=== PATIENT | female | born 1985 | race Caucasian/White ===

== ENCOUNTER 2018-02-02 19:52 | Emergency (ER) | payer OTHER ==
[~2018-02-02] VITALS: Ht 167.6 cm; Wt 81.6 kg
[2018-02-02] MEDS ORDERED: IV NORMAL SALINE 1000 ML BAG IV ONE ×2 (20:15→22:00)
[2018-02-02] MEDS ORDERED: PANTOPRAZOLE SODIUM 40 MG VIAL IV ONE (20:15)
[2018-02-02] MEDS ORDERED: ONDANSETRON 4 MG/2 ML VIAL IV ONE (20:15)
[2018-02-02] MEDS ORDERED: LORAZEPAM 2 MG/1 ML VIAL IV ONE ×2 (20:30→22:00)
[2018-02-02] MEDS ORDERED: ONDANSETRON 4 MG/2 ML VIAL ONE (20:37)
[2018-02-02] MEDS ORDERED: PANTOPRAZOLE SODIUM 40 MG VIAL ONE (20:37)
[2018-02-02 20:39] LABS: BASOPHILS % (AUTO) 0.2 % (0.0-2.0); EOSINOPHILS % (AUTO) 0.2 % (0.0-7.0); HEMATOCRIT 36.6 % (31.2-41.9); HEMOGLOBIN 12.4 g/dL (10.9-14.3); LYMPHOCYTES # (AUTO) 0.9 K/uL (20.0-40.0); LYMPHOCYTES % (AUTO) 13.7 % (20.5-51.5); MEAN CORPUSCULAR HEMOGLOBIN 30.6 uug (24.7-32.8); MEAN CORPUSCULAR HGB CONC 34 g/dL (32.3-35.6); MEAN CORPUSCULAR VOLUME 90.1 fL (75.5-95.3); MONOCYTES # (AUTO) 0.2 K/uL (2.0-10.0); MONOCYTES % (AUTO) 3.6 % (0.0-11.0); NEUTROPHILS # (AUTO) 5.7 K/uL (1.8-8.9); NEUTROPHILS % (AUTO) 82.3 % (38.5-71.5); PLATELET COUNT (AUTO) 230 K/uL (179-408); RED BLOOD CELL COUNT(AUTO) 4.07 MIL/uL (3.63-4.92); WHITE BLOOD COUNT (AUTO) 6.9 K/uL (3.8-11.8)
[2018-02-02] MEDS ORDERED: LORAZEPAM 2 MG/1 ML VIAL ONE ×2 (20:39→22:03)
[2018-02-02 20:44] LABS: CREATININE 0.8 mg/dL (0.6-1.3); POTASSIUM 3.7 mmol/L (3.5-5.1)
[2018-02-02 20:50] LABS: BILIRUBIN,DIRECT 0.1 mg/dL (0.0-0.2); BILIRUBIN,TOTAL 0.2 mg/dL (0.2-1.0); TOTAL PROTEIN, SERUM 7.5 g/dL (6.4-8.2)
[2018-02-02 21:36] LABS: *AMPHETAMINE, URINE NEGATIVE (NEGATIVE); *BARBITURATE, URINE NEGATIVE (NEGATIVE); *CANNABINOID, URINE POSITIVE (NEGATIVE); *COCCAINE, URINE NEGATIVE (NEGATIVE); *OPIATE, URINE NEGATIVE (NEGATIVE); *PHENCYCLIDINE SCREEN,URINE NEGATIVE (NEGATIVE)
--- NOTE | 2018-02-02 21:50 | NUR ---
Patient requesting for 2nd dose of Ativan for anxiety not relieved by 1st dose
--- NOTE | 2018-02-02 22:10 | NUR ---
Patient states hurt back about 1month ago after moving furniture and in the last 4 days re-agrrevated back pain. requesting for pain med
[2018-02-02] MEDS ORDERED: HYDROCODONE/APAP 5-325MG TABLET PO ONE (22:15)
[2018-02-02] MEDS ORDERED: HYDROCODONE/APAP 5-325MG TABLET ONE (22:19)
[2018-02-02 22:44] LABS: BASOPHILS % (AUTO) 0.2 % (0.0-2.0); HEMATOCRIT 32.9 % (31.2-41.9); HEMOGLOBIN 11.5 g/dL (10.9-14.3); LYMPHOCYTES # (AUTO) 0.7 K/uL (20.0-40.0); LYMPHOCYTES % (AUTO) 9.3 % (20.5-51.5); MEAN CORPUSCULAR HEMOGLOBIN 31.9 uug (24.7-32.8); MEAN CORPUSCULAR HGB CONC 35 g/dL (32.3-35.6); MEAN CORPUSCULAR VOLUME 91.2 fL (75.5-95.3); MONOCYTES # (AUTO) 0.1 K/uL (2.0-10.0); MONOCYTES % (AUTO) 1.9 % (0.0-11.0); NEUTROPHILS # (AUTO) 6.6 K/uL (1.8-8.9); NEUTROPHILS % (AUTO) 88.6 % (38.5-71.5); PLATELET COUNT (AUTO) 200 K/uL (179-408); WHITE BLOOD COUNT (AUTO) 7.5 K/uL (3.8-11.8)
--- NOTE | 2018-02-02 23:48 | NUR ---
IV removed. Catheter intact and site benign. Pressure and 4x4 gauze applied to site. No bleeding noted.
--- NOTE | 2018-02-03 00:05 | NUR ---
Patient discharged to home in stable conditon. Written and verbal after care instructions given. Patient verbalizes understanding of instructions. Patient taking Uber home
[2018-02-03 00:06] VITALS: BP 128/77
== END 2018-02-03 00:08 | disposition home or self-care (01) ==
LOC: ER 19:54
DX: K22.6 Gastro-esophageal laceration-hemorrhage syndrome (principal); K29.20 Alcoholic gastritis without bleeding; F10.129 Alcohol abuse with intoxication, unspecified; G89.29 Other chronic pain; M54.5 Low back pain; R00.0 Tachycardia, unspecified; Z88.8 Allergy status to other drugs, medicaments and biological substances
CPT/HCPCS: 36415; 71045; 80307; 83690; 84443; 84703; 85025; 86850; 86900; 86901; 93005; A4663; C9113; G0480; J2060; J2405; J7030

== ENCOUNTER 2018-02-26 22:14 | Emergency (ER) | payer OTHER ==
[~2018-02-26] VITALS: Ht 175.3 cm; Wt 79.4 kg
[2018-02-26] MEDS ORDERED: LORAZEPAM 2 MG/1 ML VIAL IV ONE (22:29)
[2018-02-26] MEDS ORDERED: IV NS 1000 ML 1,000 ML IV ONE (22:30)
[2018-02-26] MEDS ORDERED: LORAZEPAM 2 MG/1 ML VIAL ONE (22:38)
[2018-02-26 22:53] LABS: BASOPHILS # (AUTO) 0.1 K/uL (0.0-8.0); BASOPHILS % (AUTO) 0.6 % (0.0-2.0); EOSINOPHILS # (AUTO) 0.2 K/uL (0.0-0.7); EOSINOPHILS % (AUTO) 1.9 % (0.0-7.0); HEMATOCRIT 35.2 % (31.2-41.9); LYMPHOCYTES # (AUTO) 2.9 K/uL (20.0-40.0); LYMPHOCYTES % (AUTO) 36.2 % (20.5-51.5); MEAN CORPUSCULAR HEMOGLOBIN 30.6 uug (24.7-32.8); MEAN CORPUSCULAR HGB CONC 34 g/dL (32.3-35.6); MEAN CORPUSCULAR VOLUME 89.8 fL (75.5-95.3); MONOCYTES # (AUTO) 0.6 K/uL (2.0-10.0); MONOCYTES % (AUTO) 6.8 % (0.0-11.0); NEUTROPHILS # (AUTO) 4.4 K/uL (1.8-8.9); NEUTROPHILS % (AUTO) 54.5 % (38.5-71.5); PLATELET COUNT (AUTO) 303 K/uL (179-408); RED BLOOD CELL COUNT(AUTO) 3.92 MIL/uL (3.63-4.92); WHITE BLOOD COUNT (AUTO) 8.1 K/uL (3.8-11.8)
[2018-02-26 23:07] LABS: CARBON DIOXIDE 20 mmol/L (21-32); CHLORIDE 100 mmol/L (98-107); CREATININE 0.9 mg/dL (0.6-1.3); GLUCOSE 103 mg/dL (74-106); POTASSIUM 2.9 mmol/L (3.5-5.1); UREA NITROGEN, BLOOD 7 mg/dL (7-18)
[2018-02-26 23:12] LABS: ETHANOL < 3 MG/DL (0-0)
[2018-02-26 23:14] LABS: ALANINE AMINOTRANSFERASE 17 U/L (14-59); ALKALINE PHOSPHATASE 83 U/L (50-136); ASPARTATE AMINOTRANSFERASE 14 U/L (15-37); BILIRUBIN,TOTAL 0.4 mg/dL (0.2-1.0); CREATINE KINASE, TOTAL 73 U/L (26-192); TOTAL PROTEIN, SERUM 7.4 g/dL (6.4-8.2)
[2018-02-26 23:22] LABS: *BILIRUBIN,URIN NEGATIVE (NEGATIVE); *BLOOD, URINE NEGATIVE (NEGATIVE); *CLARITY,URINE CLEAR (CLEAR); *COLOR,URINE LIGHT YELLOW (YELLOW); *KETONES,URINE NEGATIVE (NEGATIVE); *PROTEIN,URINE NEGATIVE (NEGATIVE); *UROBILINOGEN,URINE 0.2 E.U./dl (NORMAL); LEUKOCYTE ESTERASE ,URINE NEGATIVE (NEGATIVE); NITRITE, URINE NEGATIVE (NEGATIVE); UGLUCOSE NEGATIVE (NEGATIVE)
[2018-02-26 23:29] LABS: RBC,URINE NONE SEEN /HPF (0-3)
[2018-02-26 23:30] LABS: BACTERIA,URINE NONE SEEN /HPF (NONE SEEN); MUCUS,URINE FEW /LPF (0-FEW); SQUAMOUS EPITHELIAL CELL,UR FEW /HPF (NONE SEEN); WBC,URINE 0-3 /HPF (0-3)
[2018-02-26 23:33] LABS: *AMPHETAMINE, URINE NEGATIVE (NEGATIVE); *BARBITURATE, URINE NEGATIVE (NEGATIVE); *CANNABINOID, URINE NEGATIVE (NEGATIVE); *COCCAINE, URINE NEGATIVE (NEGATIVE); *OPIATE, URINE POSITIVE (NEGATIVE); *PHENCYCLIDINE SCREEN,URINE NEGATIVE (NEGATIVE)
[2018-02-26] MEDS ORDERED: POTASSIUM CHLORIDE 20 MEQ TAB.PRT.SR PO ONE (23:55)
[2018-02-26] MEDS ORDERED: POTASSIUM CHLORIDE 20 MEQ TAB.PRT.SR ONE (23:59)
[2018-02-27] MEDS ORDERED: IV NS 1000 ML 1,000 ML IV ONE
[2018-02-27] MEDS ORDERED: POTASSIUM CHLORIDE 20 MEQ TAB.PRT.SR PO ONE (01:14)
[2018-02-27] MEDS ORDERED: POTASSIUM CHLORIDE 20 MEQ TAB.PRT.SR ONE (01:24)
--- NOTE | 2018-02-27 01:53 | NUR ---
Patient discharged to home in stable conditon. Written and verbal after care instructions given. Patient verbalizes understanding of instructions.
== END 2018-02-27 01:54 | disposition home or self-care (01) ==
LOC: ER 22:15
DX: F11.23 Opioid dependence with withdrawal (principal); E87.6 Hypokalemia; E86.9 Volume depletion, unspecified; G89.29 Other chronic pain; M54.9 Dorsalgia, unspecified; Z88.8 Allergy status to other drugs, medicaments and biological substances
CPT/HCPCS: 36415; 70030-TC; 71045; 80307; 85025; 93005; A4663; G0480; J2060; J7030

== ENCOUNTER 2018-03-03 00:04 | Emergency (ER) | payer OTHER ==
[~2018-03-03] VITALS: Ht 167.6 cm; Wt 81.6 kg
[2018-03-03] MEDS ORDERED: DIAZEPAM 2 MG TABLET PO ONE (00:30)
[2018-03-03] MEDS ORDERED: DIAZEPAM 5 MG TABLET ONE (00:36)
[2018-03-03] MEDS ORDERED: ASPIRIN 81 MG TAB.CHEW PO ONE (00:45)
[2018-03-03] MEDS ORDERED: ASPIRIN 81 MG TAB.CHEW ONE (00:46)
--- NOTE | 2018-03-03 01:48 | NUR ---
mse completed, meds administered, pt d/c'd home, aci/rx x1 given. pt got dresed/ambuklated w/o diff/took all belongings.
[2018-03-03 01:49] VITALS: BP 120/68
== END 2018-03-03 01:50 | disposition home or self-care (01) ==
LOC: ER 00:06
DX: F10.239 Alcohol dependence with withdrawal, unspecified (principal); F41.9 Anxiety disorder, unspecified; G89.29 Other chronic pain; M54.5 Low back pain; Z88.8 Allergy status to other drugs, medicaments and biological substances
CPT/HCPCS: 36415; 70030-TC; 71045; 93005; A4663

== ENCOUNTER 2018-04-03 03:18 | Emergency (ER) | payer OTHER ==
[~2018-04-03] VITALS: Ht 167.6 cm; Wt 79.4 kg
--- NOTE | 2018-04-03 03:31 | NUR ---
ANTON GAMBOA AT BEDSIDE FOR MSE.
[2018-04-03] MEDS: LORAZEPAM 0.5 MG TABLET PO ONE (04:04)
[2018-04-03] MEDS ORDERED: LORAZEPAM 1 MG TABLET ONE (04:05)
--- NOTE | 2018-04-03 04:05 | NUR ---
PT APPEARS ANXIOUS, CRYING. MD MADE AWARE. ATIVAN GIVEN. WILL CTM.
--- NOTE | 2018-04-03 04:45 | NUR ---
PT STILL APPEARS ANXIOUS. PT STATES THE ATIVAN DID NOT HELP HER. PT IS UPSET AND IS REQUESTING IV PLACEMENT, IV FLUIDS, AND ATIVAN IVP. SA02 100% RA.
[2018-04-03] MEDS ORDERED: CHLORDIAZEPOXIDE HCL 25 MG CAPSULE ONE (05:02)
[2018-04-03] MEDS: CHLORDIAZEPOXIDE HCL 25 MG CAPSULE PO ONE (05:04)
--- NOTE | 2018-04-03 05:43 | NUR ---
Patient discharged to home in stable conditon. Written and verbal after care instructions given. Patient verbalizes understanding of instructions. Patient ambulated out of ER in steady gait. All belongings with pt. VSS. No acute distress noted. Pt understands not to drive home.
[2018-04-03 05:46] VITALS: BP 147/91
== END 2018-04-03 05:46 | disposition home or self-care (01) ==
LOC: ER 03:22
DX: F10.239 Alcohol dependence with withdrawal, unspecified (principal); G89.29 Other chronic pain; Z88.8 Allergy status to other drugs, medicaments and biological substances
CPT/HCPCS: 93005; 99283; A4663

== ENCOUNTER 2018-07-05 17:13 | Emergency (ER) | payer OTHER ==
[~2018-07-05] VITALS: Ht 167.6 cm; Wt 72.6 kg
--- NOTE | 2018-07-05 17:38 | NUR ---
PATEINT WAS SEEN BY . HER RECORD SHOWS THAT SHE IS ALLERGIC TO TORADOL BUT PATIENT CLEARLY STATES "I AM NOT ALLERGIC TO TORADOL AT ALL." I REMOVED IT AN ALLERGY ON HER RECORD AND NOTIFIED DR LOZANO.
[2018-07-05] MEDS ORDERED: LORAZEPAM 1 MG TABLET ONE (17:42)
[2018-07-05] MEDS ORDERED: LORAZEPAM 0.5 MG TABLET PO ONE (17:45)
[2018-07-05] MEDS ORDERED: KETOROLAC TROMETHAMINE 30 MG INJ IM ONE (17:45)
[2018-07-05] MEDS ORDERED: KETOROLAC TROMETHAMINE 30 MG INJ ONE (17:50)
--- NOTE | 2018-07-05 17:50 | NUR ---
ATIVAN AND MEDICATION PRECAUTIONS EXPLAINED TO PATIENT. DC, RX AND F/U INSTRUCTIONS GIVEN AND EXPLAINED TO PATIENT WHO STATES SHE UNDERSTANDS ALL INSTRUCTIONS. PATIENT STATES SHE WILL NOT DRIVE IF FELLING UNABLE DUE TO MEDICATION..
== END 2018-07-05 17:53 | disposition home or self-care (01) ==
LOC: ER 17:14
DX: F10.239 Alcohol dependence with withdrawal, unspecified (principal); M54.9 Dorsalgia, unspecified; G89.29 Other chronic pain
CPT/HCPCS: A4663; J1885

== ENCOUNTER 2019-03-03 06:42 | Emergency (ER) | payer MEDICAID, OTHER ==
[~2019-03-03] VITALS: Ht 167.6 cm; Wt 72.6 kg
--- NOTE | 2019-03-03 06:54 | NUR ---
ERMD at bedside for MSE
--- NOTE | 2019-03-03 06:54 | NUR ---
Patient ambulated with stable gait. A/Ox4. Speech is clear, speaks in complete sentences. No neuro deficits. Patient came in for c/o alcohol withdrawal. Last drink about 12hours ago. Denies any hallucinations. Patient experiencing tremors, and shakiness. Respiratory even and unlabored. No GI/ distress.
[2019-03-03] MEDS ORDERED: LORAZEPAM 2 MG/1 ML VIAL ONE ×2 (06:59→07:31)
[2019-03-03] MEDS ORDERED: LORAZEPAM 2 MG/1 ML VIAL IM ONE (07:00)
--- NOTE | 2019-03-03 07:03 | NUR ---
Assumed care of patient. No acute distress noted.VSS
[2019-03-03] MEDS ORDERED: LORAZEPAM 2 MG/1 ML VIAL IV ONE (07:30)
[2019-03-03] MEDS ORDERED: IV NORMAL SALINE 1000 ML BAG IV ONE (07:30)
--- NOTE | 2019-03-03 07:43 | NUR ---
Patient remains in bed, + tremors, improvement in tachycardia is noted. Will continue to monitor the patient.
--- NOTE | 2019-03-03 08:34 | NUR ---
Patient discharged to home in stable conditon. Written and verbal after care instructions given. Patient verbalizes understanding of instructions. Ambulated from ER with stable gait. Peripheral IV removed prior to d/c. Patient to be driven home by taxi. All belongings with patient.
[2019-03-03 08:35] VITALS: BP 119/78
== END 2019-03-03 08:35 | disposition home or self-care (01) ==
LOC: ER 07:09
DX: F10.239 Alcohol dependence with withdrawal, unspecified (principal); G89.29 Other chronic pain; M54.9 Dorsalgia, unspecified; Y90.9 Presence of alcohol in blood, level not specified
CPT/HCPCS: 96372; 96374; 99283; J2060 ×2; A4663; J7030